=== PATIENT | male | born 1950 | race Caucasian/White ===

== ENCOUNTER → 2016-06-06 | Outpatient (CLI) | payer MEDICARE ==
[~2016-06-06] MED LIST: ASPIRIN PO; LASIX PO; LASIX20 MG PO; LOPRESSOR PO; NORVASC PO; PLAVIX PO
== END | disposition home or self-care (01) ==
LOC: CRAD 09:55
DX: R13.10 Dysphagia, unspecified (principal); R13.12 Dysphagia, oropharyngeal phase; Z85.819 Personal history of malignant neoplasm of unspecified site of lip, oral cavity, and pharynx
CPT/HCPCS: 74230; 92611; G8996-GN; G8997-GN; G8998-GN